=== PATIENT | male | born 1975 | race Caucasian/White ===

== ENCOUNTER 2020-01-12 14:22 | Emergency (ER) | payer BC, SELFPAY ==
[2020-01-12 14:40] VITALS: BP 134/83; PULSE 94; RESP 22; TEMP 37.1; O2SAT 99
--- NOTE | 2020-01-12 15:07 | ED.SKABFB ---
HPI - Skin/Abscess/Foreign Bdy General Chief complaint: Skin/Abscess/Foreign Body Stated complaint: Wash bite alergic reaction Time Seen by Provider: 01/12/20 15:02 Source: patient and RN notes reviewed Mode of arrival: ambulatory Limitations: no limitations History of Present Illness HPI narrative: Patient presents today complaining of a wasp sting to the posterior right lower leg 2 days ago.Yesterday he woke up and noted swelling and increased redness to the lower leg and ankle.He has tried Benadryl this morning without relief. Denies fever, numbness or tingling. MD complaint: insect bite/sting and discoloration Related Data Allergies Allergy/AdvReac Type Severity Reaction Status Date / Time No Known Allergies Allergy Verified 01/12/20 15:08 Review of Systems Review of Systems: Narrative: CONSTITUTIONAL: Denies body aches, fever, chills, or sweats. EYES: Denies visual changes, redness, or discharge. ENT: Denies rhinorrhea, congestion, sore throat, or otalgia. CARDIOVASCULAR: Denies chest pain, palpitations. RESPIRATORY: Denies cough or dyspnea. GASTROINTESTINAL: Denies abdominal pain, nausea, vomiting, or diarrhea. GENITOURINARY: Denies dysuria or hematuria. SKIN: Denies rash, itching. +Insect bite MUSCULOSKELETAL: Denies back pain, joint pain, or myalgia.+Swelling to the right lower leg NEUROLOGIC: Denies headache, numbness, tingling, or weakness. PSYCH: Denies depression or anxiety. [facility] Family History Family History (Updated 09/30/15 @ 16:09 by DOCTOR UNKNOWN) Other Diabetes mellitus Family history of heart disease in male family member before age 55 Social History Social History Smoking status: Light tobacco smoker Alcohol intake: current Comments At time of signature, I have reviewed and agree with nursing past medical, surgical, social and family history unless otherwise noted. Please see nursing chart for further information. There is no relevant family history pertinent to the presenting complaint Exam Narrative: Exam Narrative: GENERAL: Well-appearing, well-nourished, and in no acute distress. HEAD: Normocephalic, atraumatic. EYES: EOMI. No redness or drainage. Conjunctivae normal. ENT: Mucous membranes pink and moist. NECK: Normal AROM. CHEST: No respiratory distress. EXTREMITIES: Right lower le.5 cm area of scabbing to the proximal posterior leg. Erythema extends from the scabbing, down the leg circumferentially. 1-2+ pitting edema to the lower leg and ankle. No fluctuance noted. Slight induration around the scabbing. Distal sensation intact. Capillary refill normal. Posterior tibial pulse normal.No color change to the foot.Full range of motion of the ankle and knee. SKIN: Warm, dry, no rash. Capillary refill normal. Normal skin turgor. NEURO: No focal deficits. Alert and oriented x3. Gait steady. PSYCH: Normal affect. No signs of depression or anxiety. Course Vital Signs Vital signs: Vital Signs Temperature 98.8 F 01/12/20 14:40 Pulse Rate 94 01/12/20 14:40 Respiratory Rate 22 H 01/12/20 14:40 Blood Pressure 134/83 01/12/20 14:40 Pulse Oximetry 99 01/12/20 14:40 Temperature 98.8 F 01/12/20 14:40 Pulse Rate 94 01/12/20 14:40 Respiratory Rate 22 H 01/12/20 14:40 Blood Pressure 134/83 01/12/20 14:40 Pulse Oximetry 99 01/12/20 14:40 Reviewed. Pt has been instructed to follow up with his PCP regarding his elevated blood pressure today. MDM - Skin/Abscess/Foreign Bdy Differential Diagnosis Differential diagnosis: Likely abscess of skin or subcutaneous tissue, cellulitis, insect bites, impetigo and contact dermatitis Critical Care Time Critical Care Time Critical Care Time: No Discharge Plan Discharge Clinical Impression: Cellulitis Qualifiers: Site of cellulitis: extremity Site of cellulitis of extremity: lower extremity Laterality: right Qualified Code(s): L03.115 - Cellulitis of right lower limb Insect bite Qualifiers:
== END 2020-01-12 15:11 | disposition home or self-care (01) ==
PROVIDERS: Emergency Provider Nurse Practitioner
DX: S80.861A Insect bite (nonvenomous), right lower leg, initial encounter (principal); L03.115 Cellulitis of right lower limb; W57.XXXA Bitten or stung by nonvenomous insect and other nonvenomous arthropods, initial encounter; F17.290 Nicotine dependence, other tobacco product, uncomplicated
CPT/HCPCS: 99203; G0463

== ENCOUNTER 2023-12-14 16:15 | Emergency (ER) | payer BC, SELFPAY ==
[2023-12-14 16:25] VITALS: BP 148/86; PULSE 89; RESP 18; TEMP 36.6; O2SAT 100
--- NOTE | 2023-12-14 16:37 | ED.URI ---
HPI - URI/Sore Throat General Chief Complaint: Upper Respiratory Infection Stated Complaint: Sore Throat/Congestion Time Seen by Provider: 12/14/23 16:37 History of Present Illness HPI Narrative: 48-year-old male presented for complaint of headache, body aches, sinus pressure/congestion, sore throat, cough, fever/chills. States his glands in his throat feels swollen. onset 4 days. Denies sob, wheezing, n/v/d. Taking Mucinex, DayQuil and NyQuil. Related Data Home Medications Medication Instructions Recorded Confirmed atorvastatin 20 mg tablet 20 mg PO DAILY 12/14/23 12/14/23 losartan 50 mg tablet 50 mg PO DAILY 12/14/23 12/14/23 Allergies Allergy/AdvReac Type Severity Reaction Status Date / Time No Known Allergies Allergy Verified 01/12/20 15:08 Review of Systems Review of Systems: CONSTITUTIONAL: reports body aches, fever, chills EYES: Denies visual changes, redness, or discharge. ENT: Reports rhinorrhea, congestion, sore throat CARDIOVASCULAR: Denies chest pain, palpitations, or edema. RESPIRATORY: reports cough Denies dyspnea. GASTROINTESTINAL: Denies abdominal pain, nausea, vomiting, or diarrhea. SKIN: Denies rash MUSCULOSKELETAL: Denies back pain, joint pain PMFSH Family History Family History Other Diabetes mellitus Family history of heart disease in male family member before age 55 Social History Social History Smoking status: Light tobacco smoker Alcohol intake: current Exam Narrative: GENERAL: mildly Ill-appearing, no acute distress. EYES: conjunctivae clear ENT: Mucous membranes moist. nasal congestion noted. TM pearly gottlieb with dull light reflex bilaterally; no tragal tenderness. Oropharynx not erythematous without lesions. Tonsils not enlarged and without exudate. No drooling, no hoarseness, no trismus, uvula midline. No tripod positioning, hot potato voice, or soft palate swelling. NECK: Supple. No lymphadenopathy CHEST: Clear to auscultation, breath sounds equal. No respiratory distress, speaks in full sentences. Moist clinical trial data manager cough. HEART: Regular rate and rhythm. No murmur heard. SKIN: Warm, dry, no rash. NEURO: Alert and oriented x3. Course Course Emergency Course: Patient is aware of diagnosis, understands and agrees to treatment plan. Anticipatory guidance given. Patient agrees to follow-up as directed and is aware of reasons to seek care at the emergency department. Portions of this record may have been created with voice recognition software Level of Care: Express Care Visit Vital Signs Vital signs: Vital Signs Temperature 97.9 F 12/14/23 16:25 Pulse Rate 89 12/14/23 16:25 Respiratory Rate 18 12/14/23 16:25 Blood Pressure 148/86 H 12/14/23 16:25 Pulse Oximetry 100 12/14/23 16:25 Oxygen Delivery Room Air 12/14/23 16:25 Temperature 97.9 F 12/14/23 16:25 Pulse Rate 89 12/14/23 16:25 Respiratory Rate 18 12/14/23 16:25 Blood Pressure 148/86 H 12/14/23 16:25 Pulse Oximetry 100 12/14/23 16:25 Oxygen Delivery Room Air 12/14/23 16:25 MDM - URI/Sore Throat MDM Narrative Medical decision making narrative: flu, covid, and strep result reviewed with pt. Advise supportive treatments. Patient is appropriate for outpatient treatment and follow-up. Differential Diagnosis Differential diagnosis: Likely upper respiratory infection, sinusitis, viral infection, influenza and pharyngitis Lab Data Labs: Strep Screen Presumptive Negative *(Reference Range: Negative)* Discharge Plan Discharge Clinical Impression: Upper respiratory infection Patient Disposition: Home, Self-Care Condition: Stable Instructions: Antibiotic Form, Upper Respiratory Infection (ED) Additional Instructions: Rapid strep swab was negative today Y
== END 2023-12-14 17:10 | disposition home or self-care (01) ==
PROVIDERS: Emergency Provider Nurse Practitioner Family
DX: J06.9 Acute upper respiratory infection, unspecified (principal); Z20.822 Contact with and (suspected) exposure to COVID-19
CPT/HCPCS: 87081; 87426; 87804; 87880; 99213; G0463

== ENCOUNTER 2025-03-05 18:16 | Emergency (ER) | payer BC, SELFPAY ==
--- OUTSIDE RECORDS SUMMARY | 2025-03-05 18:19 | XMS_ITS | Encounter Summary ---
Author Organization [facility] Address [address] [place] [address] Care Team Providers Care Senior Assistant Manager Name Role Phone Solitario Salamanca MD Primary Care Provider [phone] Encounter Details Date Type Department Care Team (Late st Contact Info) Description 10/26/2005 Outpatient Historical [facility] Internal Medicine [facility] [address] [place] [address] Gerry Siegel MD [address] [place] [address] Social History Tobacco Use Types Packs/Day Years Used Date Smoking Tobacco: Never Assessed Sex and Gender Information Value Date Recorded Sex Assigned at Not on file 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 Gender Identity Not on file Sexual Orientation Not on file documented as of this encounter Last Filed Vital Signs Vital Sign Reading Time Taken Comments Blood Pressure 150/96 10/26/2005 1:15 PM PLANT ANATOMIST Pulse 78 10/26/2005 1:15 PM PLANT ANATOMIST Temperature 36.8 C (98.3 F) 10/26/2005 1:15 PM PLANT ANATOMIST Respiratory Rate 20 10/26/2005 1:15 PM PLANT ANATOMIST Oxygen Saturation - - Inhaled Oxygen Concentration - - Weight 90.7 kg (200 lb) 10/26/2005 1:15 PM PLANT ANATOMIST Height 182.9 cm (6') 10/26/2005 1:15 PM PLANT ANATOMIST Body Mass Index 27.12 10/26/2005 1:15 PM PLANT ANATOMIST documented in this encounter Plan of Treatment Upcoming Encounters Date Type Department Care Team (Late st Contact Info) Description 07/03/2025 8:30 AM PLANT ANATOMIST Office Visit [facility] Internal Medicine [facility] [address] [place] [address] [place] [address] [facility] [address] [place] [address] 12/31/2025 8:30 AM CDT Office Visit [facility] Internal Medicine [facility] [address]ons[address] [place] [address] [place] [address] [facility] [address] [place] [address] documented as of this encounter Visit Diagnoses Not on filedocumented in this encounter Care Teams Senior Assistant Manager Relationship Specialty Start [place] [address] [place] [address] PCP - General Internal Medicine 05/25/16 documented as of this encounter
--- OUTSIDE RECORDS SUMMARY | 2025-03-05 18:19 | XMS_ITS | Encounter Summary ---
Author Organization [facility] Address [address] [place] [address] Care Team Providers Care Blood And Plasma Laboratory Assistant Name Role Phone Solitario Salamanca MD Primary Care Provider [phone] Encounter Details Date Type Department Care Team (Late Contact Info) Description 02/15/2005 Outpatient Historical [facility] Endocrinology & Diabetes Management [address] [place] [address]. 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 Gender Identity Not on file Sexual Orientation Not on file documented as of this encounter Plan of Treatment Upcoming Encounters Date Type Department Care Team (Late st Contact Info) Description 07/03/2025 8:30 AM AUTO DETAILER Office Visit [facility] Internal Medicine Aviva Gonaslez [address] [place] [address] [place] [address] [place] [address] 12/31/2025 8:30 AM CDT Office Visit [facility] Internal Medicine [facility] Gonsalez [address] [facility] [address] [place] [address] [place] [address] [facility] [address] [place] [address] documented as of this encounter Visit Diagnoses Not on filedocumented in this encounter Care Teams Blood And Plasma Laboratory Assistant Relationship Specialty Start [place] [address] [facility] [address] [place] [address] PCP - General Internal Medicine 05/25/16 documented as of this encounter
--- OUTSIDE RECORDS SUMMARY | 2025-03-05 18:19 | XMS_ITS | Clinical Summary ---
Author Organization [facility] Address [address] [place] [address] Care Team Providers Care Feature Writer Name Role Phone Solitario Salamanca MD Primary Care Provider [phone] Allergies Active Allergy Reactions Criticality Noted Date Comments No Known Allergies 10/26/2005 Medications sildenafiL, pulm.hypertensio n, (REVATIO) 20 mg Tablet Take 1 Tablet (20 mg) by mouth 1 time daily as needed (ED). 20 Tablet 3 02/20/2023 Active metFORMIN (GLUCOPHAGE XR) 500 mg Extended Release 24 hour tablet Take 1 Tablet (500 mg) by mouth daily with breakfast. 100 Tablet 3 06/26/2024 Active atorvastatin (LIPITOR) 20 mg tabletIndication s:Elevated coronary artery calcium score Take 1 Tablet (20 mg) by mouth daily. 90 Tablet 3 10/24/2024 Active losartan (COZAAR) 100 mg tabletIndication s:Primary hypertension,Marly vated coronary artery calcium score Take 1 Tablet (100 mg) by mouth daily. 90 Tablet 3 12/31/2024 Active Active Problems Problem Noted Date Diagnosed Date Type 2 diabetes mellitus wit hout complication, without long-term current use of insulin 06/25/2024 Elevated coronary artery farida cium score; December 2021; stress echo 12/2021 negative for ischemia. 12/22/2022 Left lower lobe pulmonary nodule 12/22/2022 Mixed hyperlipidemia 12/22/2022 Primary hypertension 12/22/2022 Family history of diabetes mellitus 12/22/2022 KEISHA (generalized anxiety disorder); mild 019 Family history of colon cancer in father 019 Trigger ring finger of right hand 09/27/2017 Resolved Problems Problem Noted Date Diagnosed Date Resolved Date Smokes cigars 05/14/2014 05/25/2016 Anxiety state, unspecified 08/19/2011 1 Tobacco abuse 08/19/2011 02/18/2020 Screening for lipoid disorders 05/10/2006 04/15/2008 Routine general medical exam ination at a health care facility 05/10/2006 04/15/2008 Acute upper respiratory infe ctions of unspecified site 12/15/2005 04/15/2008 Backache, unspecified 10/26/20052007 Encounters Date Type Department Care Team Description 03/05/2025 Telephone [facility] [address] [place] [address] Solitario Salamanca MD Medication Assistance 02/12/2025 External Device Data STL ABSTRACTION Provider, Abstract 02/12/2025 External Device Data STL ABSTRACTION Provider, Abstract 02/12/2025 External Device Data STL ABSTRACTION Provider, Abstract 02/11/2025 External Device Data STL ABSTRACTION Provider, Abstract 01/21/2025 External Device Data STL ABSTRACTION Provider, Abstract 01/15/2025 External Device Data STL ABSTRACTION Provider, Abstract 12/31/2024 8:30 AM CDT Office Visit [facility] [address] [place] [address] Solitario Salamanca MD Annual physical exam (Primary Dx); Primary hypertension; Type 2 diabetes mellitus without complication, without long-term current use of insulin ([facility]); Mixed hyperlipidemia; Elevated coronary artery calcium score 12/31/2024 Results Follow-Up [facility] [address] [place] [address] Solitario Salamanca MD CBC WITHOUT DIFFERENTIAL, COMPREHENSIVE METABOLIC PANEL, LIPID PANEL, HEMOGLOBIN A1C 12/18/2024 External Device Data STL ABSTRACTION Provider, Abstract 12/17/2024 External Device Data STL ABSTRACTION Provider, Abstract 12/10/2024 External Device Data STL ABSTRACTION Provider, Abstract from Last 3 Months Immunizations Immunization Administration Dates Next Due (ADACEL/BOOSTRIX)(10 YR UP) TDAP VACCINE, 0.5ML, IM 07/19/2011 INFLUENZA VACCINE QUADRIVALE NT 6 MOS UP PF IM 06/26/2023,05/27/2021,06/02/2020,2018,05/29/2018 INFLUENZA VACCINE TRIVALENT SPLIT VIRUS, (6 MOS UP), 0.5ML (PF), IM 06/25/2024 Influenza Vaccine Split 3+ Yrs PF IM ,05/25/2016,07/07/2015,2013,07/19/2011 Family History Medical History Relation Name Comments Cancer Father rectal Rectal Cancer Father Relation Name Status Comments Father Alive Mother Alive Social History Tobacco Use Types Packs/Day Years Used Date Smoking Tobacco: Former Cigars Smokeless Tobacco: Former Tobacco Cessation:Counseling Given: Not Answered Alcohol Use Standard Drinks/Week Comments Yes 0 (1 standard drink = 0.6 oz pur e alcohol) Sex and Gender Information Value Date Recorded Sex Assigned at Not on file Legal Sex Male 4:44 AM DEADENER Gender Identity Not on file Sexual Orientation Not on file Occupation Industry Job Start Date Job End Date Not on file Not on file Not on file Not on file Last Filed Vital Signs Vital Sign Reading Time Taken Comments Blood Pressure 132/86 12/31/2024 8:30 AM CDT Pulse 56 12/31/2024 8:27 AM CDT Temperature 36.2 C (97.1 F) 12/31/2024 8:27 AM CDT Respiratory Rate 20 12/31/2024 8:27 AM CDT Oxygen Saturation 99% 06/25/2024 8:31 AM DEADENER Inhaled Oxygen Concentration - - Weight 96.2 kg (212 lb) 12/31/2024 8:27 AM CDT Height 182.9 cm (6') 12/31/2024 8:27 AM CDT Body Mass Index 28.75 12/31/2024 8:27 AM CDT Plan of Treatment Upcoming Encounters Date Type Department Care Team (Late st Contact Info) Description 07/03/2025 8:30 AM DEADENER Office Visit [facility] [address] Gons[address] [address] [place] [address] [place] [address] [place] [address] 12/31/2025 8:30 AM CDT Office Visit [facility] [address] [place] [address] [place] [address] [place] [address] Health Maintenance Due Date Last Done Comments DIABETES ANNUAL RETINAL EXAM 11/27/1991 HEPATITIS B VACCINES (1 of 3 - 19+ 3-dose series) 1992 FIT-DNA Q 3 years 2018 FIT/FOBT Q 1 year 2018 05/14/2014 Flex Sig/CT Colonography Q 5 years 2018 DTAP/TDAP/TD VACCINES (2 - T d or Tdap) 07/19/2021 07/19/2011 ZOSTER VACCINE (1 of 2) 11/27/2023 INFLUENZA VACCINE (#1) 2025 , 06/26/2023, 05/27/2021, Additional history exists DIABETES HBA1C Q 6 MONTHS 07/02/20252024, 06/25/2024, 06/26/2023, Additional history exists DIABETES ANNUAL FOOT EXAM 12/31/2025 12/31/2024 DIABETES MICROALBUMIN ANNUAL SCREEN 12/31/2025 12/31/2024, 06/25/2024, 06/26/2023 DIABETES: A1C (Auto Order) 12/31/202512/31, 06/25/2024, 06/26/2023, Additional history exists LDL CHOLESTEROL ANNUAL 12/31/2025 , 06/25/2024, 06/26/2023, Additional history exists COLORECTAL SCREENING 11/29/2026 11/30/2023, 11/30/19 Colorectal Cancer Screening 11/29/2026 Preventative Visit- Commercial Completed 0 12/31/2024, 12/26/2023, 06/26/2023, Additional history exists Medical Devices Implanted Type Area Coffee Roaster Helper Device Identifier Shelf Expiration Date Model / Serial / Lot Clip Endo Resolution 360 235cm [id number] - [id number] Implanted:Qty: 1 on 11/30/2023 by Nancy Norris MD at [facility] Clip N/A: Perianal [employer] [id number] 08/30/2026 [id number] / / [id number] Description:post polypectomy Procedures Procedure Name Priority Date/Time Associated Diagnosis Comments MICROALBUMIN/CREATININ E RATIO, RANDOM UR Routine 12/31/2024 9:05 AM CDT LIPID PANEL Routine 12/31/2024 9:05 AM CDT Primary hypertension Type 2 diabetes mellitus without complication, without long-term current use of insulin ([facility]) Mixed hyperlipidemia Elevated coronary artery calcium score HEMOGLOBIN A1C Routine 12/31/2024 9:05 AM CDT Primary hypertension Type 2 diabetes mellitus without complication, without long-term current use of insulin ([facility]) Mixed hyperlipidemia Elevated coronary artery calcium score COMPREHENSIVE METABOLIC PANEL Routine 12/31/2024 9:05 AM CDT Primary hypertension Type 2 diabetes mellitus without complication, without long-term current use of insulin ([facility]) Mixed hyperlipidemia Elevated coronary artery calcium score CBC WITHOUT DIFFERENTIAL Routine 12/31/2024 9:05 AM CDT Primary hypertension Type 2 diabetes mellitus without complication, without long-term current use of insulin ([facility]) Mixed hyperlipidemia Elevated coronary artery calcium score COLONOSCOPY REPORT 11/30/2023 12 :12 PM CDT POC OCCULT BLOOD 1 CARD Routine 05/14/2014 12:20 PM CDT Bright red blood per rectum from Last 3 Months or Most Recently Relevant to Health Maintenance Results * MICROALBUMIN/CREATININE RATIO, RANDOM UR (12/31/2024 9:05 AM CDT) CREATININE, URINE 144 20 - 320 mg/dL [facility] ALBUMIN, URINE 0.7 See Note: mg/dL [facility] Comment: Reference Range: Reference Range Not established ALB/CREAT RATIO, URINE 5 <30 mg/g creat [facility] Comment: The ADA defines abnormalities in albumin excretion as follows: Albuminuria Category Result (mg/g creatinine) Normal to Mildly increased <30 Moderately increased 30-299 Severely increased > OR = 300 The ADA recommends that at least two of three specimens collected within a 3-6 month period be abnormal before considering a patient to be within a diagnostic category. Test Performed at: [facility] [address] Jeremiah Wesley MD 12/31/2024 9:05 AM CDT 12/31/2024 9:08 AM CDT Solitario Salamanca MD URINE ORDERABLES Final Result [facility] [phone] [address] * CBC WITHOUT DIFFERENTIAL (12/31/2024 9:05 AM CDT) WBC 6.9 3.8 - 10.8 Thousand/u L [facility] RBC 4.97 4.20 - 5.80 Million/uL [facility] HEMOGLOBIN 15.6 13.2 - 17.1 g/dL [facility] HEMATOCRIT 47.1 38.5 - 50.0 % [facility] MCV 94.8 80.0 - 100.0 fL [facility] MCH 31.4 27.0 - 33.0 pg [facility] MCHC 33.1 32.0 - 36.0 g/dL [facility] Comment: For adults, a slight decrease in the calculated MCHC value (in the range of 30 to 32 g/dL) is most likely not clinically significant; however, it should be interpreted with caution in correlation with other red cell parameters and the patient's clinical condition. RDW 12.2 11.0 - 15.0 % [facility] PLATELETS 228 140 - 400 Thousand/u L [facility] MPV 12.1 7.5 - 12.5 fL [facility] Comment: Test Performed at: [place] [place] [address] [address] [place] [phone] Jeremiah Wesley Blood 12/31/2024 9:05 AM CDT 12/31/2024 9:08 AM CDT us Solitario Salamanca MD HEMATOLOGY ORDERABLES Final Res ult Performing Organization Address [facility] Code Phone Number [facility] [phone] [place] [address] [address] [place] [phone] * (ABNORMAL) HEMOGLOBIN A1C (12/31/2024 9:05 AM CDT) HEMOGLOBIN A1C 6.4(H) <5.7 % of total Hgb [facility] Comment: For someone without known diabetes, a hemoglobin A1c value between 5.7% and 6.4% is consistent with prediabetes and should be confirmed with a follow-up test. For someone with known diabetes, a value <7% indicates that their diabetes is well controlled. A1c targets should be individualized based on duration of diabetes, age, comorbid conditions, and other considerations. This assay result is consistent with an increased risk of diabetes. Currently, no consensus exists regarding use of hemoglobin A1c for diagnosis of diabetes for children. ESTIMATED AVERAGE GLUCOSE (MG/DL) 137 mg/dL [facility] ESTIMATED AVERAGE GLUCOSE (MMOL/L) 7.6 mmol/L [facility] Comment: Test Performed at: [place] [place] [address] [address] [place] [phone] Jeremiah Wesley Blood 12/31/2024 9:05 AM CDT 12/31/2024 9:08 AM CDT us Solitario Salamanca MD CHEMISTRY ORDERABLES Final Resu lt Performing Organization Address [facility]/ZIP Code Phone Number [facility] [phone] [place] [address] [address] [place] [phone] * (ABNORMAL) LIPID PANEL (12/31/2024 9:05 AM CDT) Pathologist [facility] CHOLESTEROL 102 <200 mg/dL [facility] HDL 34(L) > OR = 40 mg/dL [facility] TRIGLYCERIDE 62 <150 mg/dL [facility] LDL CALCULATED 54 mg/dL (calc) [facility] Comment: Reference range: <100 Desirable range <100 mg/dL for primary prevention; <70 mg/dL for patients with CHD or diabetic patients with > or = 2 CHD risk factors. LDL-C is now calculated using the Rosey calculation, which is a validated novel method providing better accuracy than the Friedewald equation in the estimation of LDL-C. Raleigh SS et al. COTY. 2013;310(19): 2125-9306 (http://education.Froont/faq/FMI658) CHOL/HDL RATIO 3.0 <5.0 (calc) [facility] NON-HDL CHOLESTEROL 68 <130 mg/dL (calc) [facility] Comment: For patients with diabetes plus 1 major ASCVD risk factor, treating to a non-HDL-C goal of <100 mg/dL (LDL-C of <70 mg/dL) is considered a therapeutic option. Test Performed at: [place] [place] [address] [address] [place] [phone] Jeremiah Wesley Blood 12/31/2024 9:05 AM CDT 12/31/2024 9:08 AM CDT Solitario Salamanca MD CHEMISTRY ORDERABLES Final Resu lt [facility] [phone] [place] [address] [address] [place] [phone] * (ABNORMAL) COMPREHENSIVE METABOLIC PANEL (12/31/2024 9:05 AM CDT) Pathologist [facility] GLUCOSE 115(H) 65 - 99 mg/dL [facility] Comment: Fasting reference interval For someone without known diabetes, a glucose value between 100 and 125 mg/dL is consistent with prediabetes and should be confirmed with a follow-up test. BUN 15 7 - 25 mg/dL [facility] CREATININE 1.18 0.70 - 1.30 mg/dL [facility] GFR 75 > OR = 60 mL/min/1. 73m2 [facility] BUN/CREAT RATIO SEE NOTE: 6 - 22 (calc) [facility] Comment: Not Reported: BUN and Creatinine are within reference range. SODIUM 138 135 - 146 mmol/L [facility] POTASSIUM 4.8 3.5 - 5.3 mmol/L [facility] CHLORIDE 103 98 - 110 mmol/L [facility] CO2 27 20 - 32 mmol/L [facility] CALCIUM 9.8 8.6 - 10.3 mg/dL [facility] TOTAL PROTEIN 7.2 6.1 - 8.1 g/dL [facility] ALBUMIN 4.9 3.6 - 5.1 g/dL [facility] GLOBULIN 2.3 1.9 - 3.7 g/dL (calc) [facility] ALBUMIN/GLOBULIN RATIO 2.1 1.0 - 2.5 (calc) [facility] BILIRUBIN TOTAL 0.6 0.2 - 1.2 mg/dL [facility] ALKALINE PHOSPHATASE 58 35 - 144 U/L [facility] AST 24 10 - 35 U/L [facility] ALT 31 9 - 46 U/L [facility] Comment: Test Performed at: [place] [address] [address] [place] [phone] [facility] Wesley Blood 12/31/2024 9:05 AM CDT 12/31/2024 9:08 AM CDT us Solitario Salamanca MD CHEMISTRY ORDERABLES Final Resu lt [facility] [phone] [facility] [address] [address] [place] [phone] * COLONOSCOPY REPORT (11/30/2023 12:12 PM CDT) Narrative Procedure Note Nancy Norris MD - 11/30/2023 12:12 PM CDT [facility] Patient Name: Teddy Palacios Procedure Date: 11/30/2023 Date of : 1975 Attending MD: Nancy Norris MD, Procedure: Colonoscopy Indications: Screening patient at increased risk: Family history of 1st-degree relative with colorectal cancer at age 60 years (or older), father Providers: Nancy Norris MD Referring MD: Solitario Salamanca MD Medicines: Monitored Anesthesia Care Complications: No immediate complications. Procedure: Informed consent was obtained for the procedure, including moderate sedation after risks were discussed. Based on the pre-procedure assessment, including review of the patient's medical history, medications, allergies, and review of systems, the patient was deemed to be an appropriate candidate for sedation. A timeout was performed. Continuous ECG monitoring, pulse oximetry, blood pressure monitoring, and direct observation were performed. The Colonoscope was introduced through the anus and advanced to the terminal ileum. The colonoscopy was performed without difficulty. The patient tolerated the procedure well. The quality of the bowel preparation was good. Estimated Blood Loss: Estimated blood loss: none. Findings: The terminal ileum appeared normal. Five pedunculated and sessile polyps were found in the recto-sigmoid colon, descending colon and transverse colon. The polyps were 4 to 10 mm in size. These polyps were removed with a cold snare. Resection and retrieval were complete. To prevent bleeding post-intervention, one hemostatic clip was successfully placed at 10mm polypectomy site in descending colon. There was no bleeding at the end of the procedure. Non-bleeding internal hemorrhoids were found during retroflexion and during digital exam. The hemorrhoids were mild. The exam was otherwise without abnormality. Impression: - The examined portion of the ileum was normal. - Five 4 to 10 mm polyps at the recto-sigmoid colon, in the descending colon and in the transverse colon, removed with a cold snare. Resected and retrieved. Clip was placed. - Non-bleeding internal hemorrhoids. - The examination was otherwise normal. Recommendation: - Await pathology results. - Repeat colonoscopy in 3 years for surveillance. - Healthy and high fiber diet. - No NSAID medications for 7 days. Nancy Norris MD 11/30/2023 12:12:37 PM This report has been signed electronically. Number of Addenda: [address]; [place] [address] Nancy Norris MD GI PROCEDURE ORDERABLES Final Result * POC OCCULT BLOOD 1 CARD (05/14/2014 12:20 PM CDT) OCCULT BLOOD #1 Negative [facility] Stool specimen (specimen) 05/14/2014 12:20 PM CDT Annia Azevedo NP POINT OF CARE TESTING Final Result [facility] from Last 3 Months or Most Recently Relevant to Health Maintenance Insurance [facility] [employer] Advance Directives For more information, please contact: [phone] * Full Code (Latest Code Status on File) Date Activated Date Inactivated Comments 11/30/2023 10:41 AM 11/30/2023 2:40 PM Care Teams Feature Writer Relationship Specialty Start [place] [address] [place] [phone] PCP - General Internal Medicine 05/25/16
--- OUTSIDE RECORDS SUMMARY | 2025-03-05 18:19 | XMS_ITS | Encounter Summary ---
Author Organization [facility] Address [address] [place] [address] Care Team Providers Care Artist Agent Name Role Phone Solitario Salamanca MD Primary Care Provider [phone] Reason for Visit * Reason Comments Medication Assistance Encounter Details Date Type Department Care Team (Late st Contact Info) Description 03/05/2025 Telephone [facility] Internal Medicine [address] [place] [address] [place] [address] [place] [address] Medication Assistance Social History Tobacco Use Types Packs/Day Years Used Date Smoking Tobacco: Former Cigars Smokeless Tobacco: Former Alcohol Use Standard Drinks/Week Comments Yes 0 (1 standard drink = 0.6 oz pur e alcohol) Sex and Gender Information Value Date Recorded Sex Assigned at Not on file Legal Sex Male 4:44 AM EQUAL OPPORTUNITY REPRESENTATIVE Gender Identity Not on file Sexual Orientation Not on file Occupation Industry Job Start Date Job End Date Not on file Not on file Not on file Not on file documented as of this encounter Miscellaneous Notes * Telephone Encounter - StockAlejandro kraus - 03/05/2025 4:21 PM CDT Copied from [facility] #[id number]. Topic: Medication Request >> Mar 05, 2025 4:19 PM Alejandro Saldaña wrote: Caller Name: Teddy Palacios Callback Number: [phone] Medication (Ask patient/caregiver to spell if possible): Itch relief for chiggars Note: All medication prescriptions can be requested using one CRM Caller is requesting: Medication Question from Patient (not involving new prescription or refill) Preferred Pharmacy: [id number] - [place] [address] [facility] Call Notes: Caller has chiggers and asking what he can do to relieve the itch. Prescription or OTC.Will make an appointment if necessary. Is there an encounter open? No documented in this encounter Plan of Treatment Upcoming Encounters Date Type Department Care Team (Late st Contact Info) Description 07/03/2025 8:30 AM EQUAL OPPORTUNITY REPRESENTATIVE Office Visit [facility] Internal Medicine [address] [place] [phone] [place] [address] [place] [address] 12/31/2025 8:30 AM CDT Office Visit [facility] Internal Medicine [address]iva Gons[address] [place] [address] [place] [address] [place] [address] documented as of this encounter Visit Diagnoses Not on filedocumented in this encounter Care Teams Artist Agent Relationship Specialty Start [place] [address] [place] [address] PCP - General Internal Medicine 05/25/16 documented as of this encounter
--- OUTSIDE RECORDS SUMMARY | 2025-03-05 18:19 | XMS_ITS | Encounter Summary ---
Author Organization [facility] Address [address] [place] [address] Care Team Providers Care Corporate Development Officer Name Role Phone Solitario Salamanca MD Primary Care Provider [phone] Encounter Details Date Type Department Care Team (Late st Contact Info) Description 12/15/2005 Outpatient Historical [facility] Internal Medicine [facility] [address] [facility] [address] [place] [address] Brady riley, MD Walter Social History Tobacco Use Types Packs/Day Years Used Date Smoking Tobacco: Never Assessed Sex and Gender Information Value Date Recorded Sex Assigned at Not on file Legal Sex Male 4:44 AM SIZE ROLLER OPERATOR Gender Identity Not on file Sexual Orientation Not on file documented as of this encounter Last Filed Vital Signs Vital Sign Reading Time Taken Comments Blood Pressure 150/100 12/15/2005 10:45 AM CDT Pulse 96 12/15/2005 10:45 AM CDT Temperature 37.1 C (98.8 F) 12/15/2005 10:45 AM CDT Respiratory Rate 20 12/15/2005 10:45 AM CDT Oxygen Saturation - - Inhaled Oxygen Concentration - - Weight 91.6 kg (202 lb) 12/15/2005 10:45 AM CDT Height 182.9 cm (6') 12/15/2005 10:45 AM CDT Body Mass Index 27.4 12/15/2005 10:45 AM CDT documented in this encounter Plan of Treatment Upcoming Encounters Date Type Department Care Team (Late st Contact Info) Description 07/03/2025 8:30 AM SIZE ROLLER OPERATOR Office Visit [facility] Internal Medicine [facility] [address] [place] [address] [place] [address] [facility] [address] [place] [phone] 12/31/2025 8:30 AM CDT Office Visit [facility] Internal Medicine [facility] [place] [address] [address] [facility] [place] [address] [place] [address] [address] [facility] [address] [place] [address] documented as of this encounter Visit Diagnoses Not on filedocumented in this encounter Care Teams Corporate Development Officer Relationship Specialty Start [place] [address] [address] [facility] [address] [place] [phone] PCP - General Internal Medicine 05/25/16 documented as of this encounter
--- OUTSIDE RECORDS SUMMARY | 2025-03-05 18:19 | XMS_ITS | Encounter Summary ---
Author Organization [facility] Address [address] [place] [address] Care Team Providers Care Radio Mechanic Helper Name Role Phone Solitario Salamanca MD Primary Care Provider [phone] Encounter Details Date Type Department Care Team (Late st Contact Info) Description 05/10/2006 Outpatient Historical [facility] Internal Medicine [facility] 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 MILL SUPERVISOR Gender Identity Not on file Sexual Orientation Not on file documented as of this encounter Last Filed Vital Signs Vital Sign Reading Time Taken Comments Blood Pressure 130/90 05/10/2006 9:30 AM CDT Pulse 84 05/10/2006 9:30 AM CDT Temperature 36.6 C (97.9 F) 05/10/2006 9:30 AM CDT Respiratory Rate 24 05/10/2006 9:30 AM CDT Oxygen Saturation - - Inhaled Oxygen Concentration - - Weight 90.7 kg (200 lb) 05/10/2006 9:30 AM CDT Height 182.9 cm (6') 05/10/2006 9:30 AM CDT Body Mass Index 27.12 05/10/2006 9:30 AM CDT documented in this encounter Plan of Treatment Upcoming Encounters Date Type Department Care Team (Late st Contact Info) Description 07/03/2025 8:30 AM WOOD MILL SUPERVISOR Office Visit [facility] Internal Medicine [facility] [place] [place] [address] [place] [address] [facility] [address] [place] [phone] 12/31/2025 8:30 AM CDT Office Visit [facility] Internal Medicine [place] [address] [facility] [address] [place] [address] [place] [address] [facility] [address] [place] [phone] documented as of this encounter Visit Diagnoses Not on filedocumented in this encounter Care Teams Radio Mechanic Helper Relationship Specialty Start [place] [address] [address] [facility] [address] [place] [phone] PCP - General Internal Medicine 05/25/16 documented as of this encounter
--- OUTSIDE RECORDS SUMMARY | 2025-03-05 18:19 | XMS_ITS | Encounter Summary ---
Author Organization [facility] Address [address] [place] [address] Care Team Providers Care Integration Assistant Name Role Phone Solitario Salamanca MD Primary Care Provider [phone] Encounter Details Date Type Department Care Team (Late st Contact Info) Description 05/11/2006 Outpatient Historical [facility] Internal Medicine [place] Gons[place] [address] [place] [address] Walter Treviño Screening for Lipoid Disorders (Primary Dx) Social History Tobacco Use Types Packs/Day Years Used Date Smoking Tobacco: Never Assessed Sex and Gender Information Value Date Recorded Sex Assigned at Not on file 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 Gender Identity Not on file Sexual Orientation Not on file documented as of this encounter Plan of Treatment Upcoming Encounters Date Type Department Care Team (Late st Contact Info) Description 07/03/2025 8:30 AM CULINARY ASSISTANT Office Visit [facility] Internal Medicine [place]ons[place] [address] [place] [address] [place] [address] [place] [phone] 12/31/2025 8:30 AM CDT Office Visit [facility] Internal Medicine [place] Gonsalez [address] [place] [phone] [place] [address] [facility] [address] [place] [phone] documented as of this encounter Procedures Procedure Name Priority Date/Time Associated Diagnosis Comments LIPID PANEL Routine 05/11/2006 9:02 AM CDT COMPREHENSIVE METABOLIC PANEL Routine 05/11/2006 9:02 AM CDT documented in this encounter Results * (ABNORMAL) COMPREHENSIVE METABOLIC PANEL (05/11/2006 9:02 AM CDT) GLUCOSE 98 65 - 99 mg/dL INTERFACE SYSTEM CREATININE 1.1 0.5 - 1.3 mg/dL INTERFACE SYSTEM CALCIUM 9.1 8.4 - 10.2 mg/dL INTERFACE SYSTEM ALKALINE PHOSPHATASE 66 40 - 129 U/L INTERFACE SYSTEM AST 26 12 - 38 U/L INTERFACE SYSTEM ALT 36 0 - 41 U/L INTERFACE SYSTEM TOTAL PROTEIN 7.7 6.3 - 8.6 g/dL INTERFACE SYSTEM ALBUMIN 4.9(H) 3.4 - 4.8 g/dL INTERFACE SYSTEM BILIRUBIN TOTAL 0.3 0.2 - 1.0 mg/dL INTERFACE SYSTEM BUN 13 6 - 20 mg/dL INTERFACE SYSTEM SODIUM 142 135 - 145 mmol/L INTERFACE SYSTEM POTASSIUM 4.1 3.5 - 4.9 mmol/L INTERFACE SYSTEM CHLORIDE 105 96 - 108 mmol/L INTERFACE SYSTEM CO2 28 22 - 30 mmol/L INTERFACE SYSTEM 05/11/2006 9:02 AM CDT Walter Ramirez MD CHEMISTRY ORDERABLES Mary l Result INTERFACE SYSTEM Refer to clinic/hospital department * (ABNORMAL) LIPID PANEL (05/11/2006 9:02 AM CDT) CHOLESTEROL 168 100 - 199 mg/dL INTERFACE SYSTEM TRIGLYCERIDE 101 10 - 149 mg/dL INTERFACE SYSTEM HDL 32(L) 40 - 59 mg/dL INTERFACE SYSTEM CHOL/HDL RATIO 5.3(H) 2.0 - 5.0 INTER FACE SYSTEM LDL CALCULATED 116(H) <=99 mg/dL INTERFACE SYSTEM LIPID PANEL COMMENT See Below INTERFACE SYSTEM Comment: The adult ATP and pediatric NCEP classifications for lipids are available on the [facility] Intranet at: [email or web address] Select: Lab Policies and Procedures Select: Reference Ranges - Lipids 05/11/2006 9:02 AM CDT us Walter Ramirez MD CHEMISTRY ORDERABLES Mary barker Result INTERFACE SYSTEM Refer to clinic/hospital department documented in this encounter Visit Diagnoses Diagnosis Screening for lipoid disorders- Primary documented in this encounter Care Teams Integration Assistant Relationship Specialty Start [place] [address] [facility] [address] [place] [phone] PCP - General Internal Medicine 05/25/16 documented as of this encounter
--- OUTSIDE RECORDS SUMMARY | 2025-03-05 18:19 | XMS_ITS | Encounter Summary ---
Author Organization [facility] Address [address] [place] [address] Care Team Providers Care Food Cart Attendant Name Role Phone Solitario Salamanca MD Primary Care Provider [phone] Encounter Details Date Type Department Care Team (Late st Contact Info) Description 12/01/2006 Outpatient Historical [facility] Internal Medicine [facility] [address] [facility] [address] [place] [address] Brady riley, MD Walter Social History Tobacco Use Types Packs/Day Years Used Date Smoking Tobacco: Never Assessed Sex and Gender Information Value Date Recorded Sex Assigned at Not on file 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 Gender Identity Not on file Sexual Orientation Not on file documented as of this encounter Last Filed Vital Signs Vital Sign Reading Time Taken Comments Blood Pressure 130/90 12/01/2006 10:00 AM CDT Pulse 80 12/01/2006 10:00 AM CDT Temperature 36.2 C (97.1 F) 12/01/2006 10:00 AM CDT Respiratory Rate 20 12/01/2006 10:00 AM CDT Oxygen Saturation - - Inhaled Oxygen Concentration - - Weight 88.9 kg (196 lb) 12/01/2006 10:00 AM CDT Height 180.3 cm (5' 11) 12/01/2006 10:00 AM CDT Body Mass Index 27.34 12/01/2006 10:00 AM CDT documented in this encounter Plan of Treatment Upcoming Encounters Date Type Department Care Team (Late st Contact Info) Description 07/03/2025 8:30 AM SENIOR QUALITY MANAGER Office Visit [facility] Internal Medicine [place] [address] [place] [address] [place] [address] [facility] [address] [place] [phone] 12/31/2025 8:30 AM CDT Office Visit [facility] Internal Medicine [facility] Gons[place] [address] [facility] [address] [place] [address] [place] [address] [facility] [address] [place] [phone] documented as of this encounter Visit Diagnoses Not on filedocumented in this encounter Care Teams Food Cart Attendant Relationship Specialty Start [place] [address] [facility] [address] [place] [phone] PCP - General Internal Medicine 05/25/16 documented as of this encounter
--- OUTSIDE RECORDS SUMMARY | 2025-03-05 18:19 | XMS_ITS | Encounter Summary ---
Author Organization [facility] Address [address] [place] [address] Care Team Providers Care Tectonophysicist Name Role Phone Solitario Salamanca MD Primary Care Provider [phone] Encounter Details Date Type Department Care Team (Late st Contact Info) Description 12/01/2006 Outpatient Historical [facility] Internal Medicine [place] [address] [place] [address] Walter Treviño Routine General Medical Examination at a Health Care Facility (Primary Dx) Social History Tobacco Use Types Packs/Day Years Used Date Smoking Tobacco: Never Assessed Sex and Gender Information Value Date Recorded Sex Assigned at Not on file 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 Gender Identity Not on file Sexual Orientation Not on file documented as of this encounter Plan of Treatment Upcoming Encounters Date Type Department Care Team (Late st Contact Info) Description 07/03/2025 8:30 AM BANK CASHIER Office Visit [facility] Internal Medicine [place]ons[place] [address] [place] [phone] [place] [address] [place] [phone] 12/31/2025 8:30 AM CDT Office Visit [facility] Internal Medicine [place] [address] [place] [phone] [place] [address] [facility] [address] [place] [phone] documented as of this encounter Procedures Procedure Name Priority Date/Time Associated Diagnosis Comments TSH Routine 12/01/2006 10:55 AM CDT LIPID PANEL Routine 12/01/2006 10:55 AM CDT COMPREHENSIVE METABOLIC PANEL Routine 12/01/2006 10:55 AM CDT documented in this encounter Results * TSH (12/01/2006 10:55 AM CDT) TSH 1.72 0.27 - 4.20 uU/mL INTERFACE SYSTEM 12/01/2006 10:5 5 AM CDT Walter Treviño CHEMISTRY ORDERABLES Edited INTERFACE SYSTEM Refer to clinic/hospital department * COMPREHENSIVE METABOLIC PANEL (12/01/2006 10:55 AM CDT) GLUCOSE 94 65 - 99 mg/dL INTERFACE SYSTEM CREATININE 1.05 0.67 - 1.17 mg/dL INTERFACE SYSTEM CALCIUM 8.9 8.4 - 10.2 mg/dL INTERFACE SYSTEM ALKALINE PHOSPHATASE 66 40 - 129 U/L INTERFACE SYSTEM AST 21 12 - 38 U/L INTERFACE SYSTEM ALT 26 0 - 41 U/L INTERFACE SYSTEM TOTAL PROTEIN 7.5 6.3 - 8.6 g/dL INTERFACE SYSTEM ALBUMIN 4.8 3.4 - 4.8 g/dL INTERFACE SYSTEM BILIRUBIN TOTAL 0.6 0.2 - 1.0 mg/dL INTERFACE SYSTEM BUN 15 6 - 20 mg/dL INTERFACE SYSTEM SODIUM 142 135 - 145 mmol/L INTERFACE SYSTEM POTASSIUM 4.8 3.5 - 4.9 mmol/L INTERFACE SYSTEM CHLORIDE 104 96 - 108 mmol/L INTERFACE SYSTEM CO2 29 22 - 30 mmol/L INTERFACE SYSTEM GFR, >60 >=60 mL/min/1.7 sq meter INTERFACE SYSTEM GFR >60 >=60 mL/min/1.7 sq meter INTERFACE SYSTEM Comment: Estimated GFR rate interpretative information for both Americans and non- Americans is available on the [facility] Intranet at: [email or web address] Select: Lab Policies and Procedures Select: Reference Ranges - GFR 12/01/2006 10:5 5 AM CDT [facility] CHEMISTRY ORDERABLES Edited Performing Organization Address [facility] de Phone Number INTERFACE SYSTEM Refer to clinic/hospital department * (ABNORMAL) LIPID PANEL (12/01/2006 10:55 AM CDT) CHOLESTEROL 149 100 - 199 mg/dL INTERFACE SYSTEM TRIGLYCERIDE 73 10 - 149 mg/dL INTERFACE SYSTEM HDL 33(L) 40 - 59 mg/dL INTERFACE SYSTEM CHOL/HDL RATIO 4.5 2.0 - 5.0 INTER FACE SYSTEM LDL CALCULATED 101(H) <=99 mg/dL INTERFACE SYSTEM LIPID PANEL COMMENT See Below INTERFACE SYSTEM Comment: The adult ATP and pediatric NCEP classifications for lipids are available on the [facility] Intranet at: [email or web address] Select: Lab Policies and Procedures Select: Reference Ranges - Lipids 12/01/2006 10:5 5 AM CDT [facility] CHEMISTRY ORDERABLES Edited Performing Organization Address [facility] de Phone Number INTERFACE SYSTEM Refer to clinic/hospital department documented in this encounter Visit Diagnoses Diagnosis Routine general medical examination at a health care facility- Primary documented in this encounter Care Teams Tectonophysicist Relationship Specialty Start [place] [address] [place] [phone] PCP - General Internal Medicine 05/25/16 documented as of this encounter
[2025-03-05 18:21] VITALS: BP 150/99; PULSE 99; RESP 16; TEMP 37; O2SAT 100
--- NOTE | 2025-03-05 18:33 | ED_ITS ---
HPI - Skin/Abscess/Foreign Bdy General Chief complaint: Skin/Abscess/Foreign Body Stated complaint: Insect Bites Time Seen by Provider: 03/05/25 18:26 Source: patient and RN notes reviewed Mode of arrival: ambulatory Limitations: no limitations History of Present Illness HPI narrative: Patient presents today complaining of a copious chigger bites, mostly to the bilateral feet, ankles, legs, but a few to the low back and waist line. The been present for 1 week and were sustained while he was out fishing. He has tried some clear nail Tamazight and hydrocortisone spray with some mild improvement. States he has not been scratching, but they have been very itchy. Denies crusting or drainage. Related Data Home Medications ?Medication ?Instructions ?Recorded ?Confirmed ?Last Taken ?Type atorvastatin 20 mg tablet 20 mg PO DAILY 12/14/23 12/14/23 Unknown History losartan 100 mg tablet mg 03/05/25 Unknown History metformin 500 mg tablet,extended mg PO 03/05/25 Unknown History release 24 hr Allergies Allergy/AdvReac Type Severity Reaction Status Date / Time No Known Allergies Allergy Verified 03/05/25 18:25 [facility] Family History Family History Other Diabetes mellitus Family history of heart disease in male family member before age 55 Social History Social History Smoking status: Light tobacco smoker Alcohol intake: current Comments At time of signature, I have reviewed and agree with nursing past medical, surgical, social and family history unless otherwise noted. Please see nursing chart for further information. There is no relevant family history pertinent to the presenting complaint Exam Narrative: GENERAL: Well-appearing, well-nourished, and in no acute distress. HEAD: Normocephalic, atraumatic. EYES: EOMI. No redness or drainage. Conjunctivae normal. ENT: Mucous membranes pink and moist. NECK: Normal AROM. CHEST: No respiratory distress. EXTREMITIES: Normal range of motion. No edema. SKIN: Warm, dry, no rash. Capillary refill normal. Normal skin turgor. Widespread scabbed erythematous lesions, most concentrated to the dorsums of the feet, ankles, and lower legs, and more spread out over the upper legs, waistline, and low back. No swelling, crusting, drainage, induration noted. NEURO: No focal deficits. Alert and oriented x3. Gait steady. PSYCH: Normal affect. No signs of depression or anxiety. Course Course Level of Care: Express Care Visit Vital Signs Vital signs: Vital Signs Temperature 98.6 F 03/05/25 18:21 Pulse Rate 99 03/05/25 18:21 Respiratory Rate 16 03/05/25 18:21 Blood Pressure 150/99 H 03/05/25 18:21 Pulse Oximetry 100 03/05/25 18:21 Oxygen Delivery Room Air 03/05/25 18:21 Temperature 98.6 F 03/05/25 18:21 Pulse Rate 99 03/05/25 18:21 Respiratory Rate 16 03/05/25 18:21 Blood Pressure 150/99 H 03/05/25 18:21 Pulse Oximetry 100 03/05/25 18:21 Oxygen Delivery Room Air 03/05/25 18:21 Reviewed MDM - Skin/Abscess/Foreign Bdy MDM Narrative Medical decision making narrative: 49-year-old male patient presents with insect bites to the bilateral lower legs and feet and to a lesser extent, the waistline and low back that was sustained 1 week ago while he was fishing. He has been using some [id number] treatment with little relief. Exam shows diffuse erythematous crusting lesions to the bilateral lower legs, feet, and waistline without crusting, drainage, or induration. Consistent with insect bites. No signs of bacterial infection. Prescription for prednisone sent to pharmacy. Recommend starting an antihistamine to help with itching as well. Patient agrees with plan. Vital signs stable. Anticipatory guidance given. Differential Diagnosis Differential diagnosis: Likely abscess of skin or subcutaneous tissue, dermatophytosis, urticaria, cellulitis, insect bites, impetigo and contact dermatitis Critical Care Time Critical Care Time Critical Care Time: No Discharge Plan Discharge Clinical Impression: Insect bites Qualifiers: Encounter type: initial encounter Site of insect bite: unspecified site Qualified Code(s): W57.XXXA - Bitten or stung by nonvenomous insect and other nonvenomous arthropods, initial encounter Patient Disposition: Home Condition: Stable Instructions: Insect Bite or Sting (ED) Additional Instructions: Please take the prednisone as prescribed. You may also consider taking an oral antihistamine such as Zyrtec, Claritin, or Belkys to help with itching. Monitor for any signs of infection such as increased redness, swelling, drainage or crusting, see your doctor if you note any. Your blood pressure was elevated above 120/80 today at Urgent Care. This puts you above the threshold for follow up. Please schedule a followup visit with your personal physician as soon as possible, for further evaluation and treatment. Even blood pressure exceeding 120/80 may indicate pre-hypertension. Patient Language: Persian Prescriptions: New prednisone 20 mg tablet 40 mg PO DAILY 5 Days Qty: 10 0RF No Action atorvastatin 20 mg tablet 20 mg PO DAILY losartan 100 mg tablet metformin 500 mg tablet extended release 24 hr PO Follow-up/Referrals: UNKNOWN,DOCTOR [Primary Care Provider] - Time of Disposition: 18:32
== END 2025-03-05 18:37 | disposition home or self-care (01) ==
PROVIDERS: Emergency Provider Nurse Practitioner
DX: S90.862A Insect bite (nonvenomous), left foot, initial encounter (principal); S90.861A Insect bite (nonvenomous), right foot, initial encounter; S90.562A Insect bite (nonvenomous), left ankle, initial encounter; S90.561A Insect bite (nonvenomous), right ankle, initial encounter; S80.862A Insect bite (nonvenomous), left lower leg, initial encounter; S80.861A Insect bite (nonvenomous), right lower leg, initial encounter; S70.362A Insect bite (nonvenomous), left thigh, initial encounter; S70.361A Insect bite (nonvenomous), right thigh, initial encounter; S30.861A Insect bite (nonvenomous) of abdominal wall, initial encounter; S30.860A Insect bite (nonvenomous) of lower back and pelvis, initial encounter; W57.XXXA Bitten or stung by nonvenomous insect and other nonvenomous arthropods, initial encounter; F17.200 Nicotine dependence, unspecified, uncomplicated
CPT/HCPCS: 99213; G0463